=== PATIENT | female | born 1970 | race Caucasian/White ===

== ENCOUNTER 2018-06-05 17:36 | Emergency (ER) | payer BC ==
[~2018-06-05] VITALS: Ht 160 cm; Wt 69.4 kg
[~2018-06-05 17:36] MED LIST: ACETAMINOPHEN-1 EAC1 PO; AMOXICILLIN 50500 MG PO; AMOXICILLIN500 M1 PO; AMOXICILLIN875 MG PO; ATIVAN1 MG PO; AVELOX 400 MG400 M1 PO; AVELOX 400 MG400 MG; AZITHROMYCIN 2250 MG PO; BENICAR20 MG PO; BENTYL 20 MG TA20 M1 PO; BIAXIN 500 MG500 M2 PO; CARAFATE 1 GM TA1 G1 PO; CARISOPRODOL 3350 MG PO; CIPRO250 M1; CIPRO500 MG PO; CIPROFLOXACIN500 M1; CIPROFLOXACIN500 M1 PO; CLEOCIN HCL150 MG PO; CLEOCIN HCL300 MG PO; COLACE 100 MG100 MG; COLACE100 MG PO; COZAAR 25 MG TA25 MG PO; FIORICET 50-321 EACH PO; FLEXERIL PO; FLUZONE 2045 MCG/011; GAVISCON500 MG PO; HYDROCODONE-AP1 EAC6 PO; HYDROCODONE-APA1 TA1 PO; IBUPROFEN 800800 MG PO; KEFLEX500 MG PO; LOMOTIL TABLET1 EACH PO; MEDROL DOSPAK21 TA1; MOM PO; MUCINEX TA600 MG/TA2 PO; NAPROSYN500 MG PO; NIFEDIPINE ER30 MG; NORCO 5-325 TA1 EACH PO; NORCO 7.5-3251 EACH PO; OMEPRAZOLE40 MG PO; ONDANSETRON HCL4 M3 PO; PENICILLIN VK500 M1 PO; PERCOCET 5-3251 EACH PO; PHENAZOPYRIDIN200 M2 PO; PHENERGAN 25 MG25 M1 PO; PNEUMOVAX25 MCG/0.5; PREDNISONE 20 M20 M1 PO; PROTONIX 20 MG20 M1 PO; PROTONIX40 M1; PROTONIX40 M2 PO; PROTONIX40 MG PO; SEE COMMENTS; TOPROL XL25 MG PO; TOPROL XL50 MG PO; TORADOL 10 MG T10 MG PO; TRAMADOL 50 MG50 MG PO; TRIAMCINOLONE 080 G3 TP; ULTRAM 50MG TAB50 MG PO; VICODIN 5-5001 EACH PO; ZANTAC; ZANTAC 150MG T150 M1 PO; ZANTAC 150MG T150 MG PO; ZOFRAN ODT4 MG PO; ZOFRAN ODT4 MG SUBLING; ZOFRAN4 MG PO; ZPAK PO; [UNRECOGNIZED DRUG - CODE] PO
[2018-06-05] MEDS ORDERED: LOPRESSOR50 PO (17:49)
[2018-06-05] MEDS ORDERED: BENICAR40 MG PO (17:49)
[2018-06-05 18:36] LABS: ABSOLUTE LYMPHOCYTES 1.1 thou/uL (0.8-5.3); ABSOLUTE MONOCYTES 0.7 thou/uL (0.0-1.2); ABSOLUTE NEUTROPHILS 6.4 thou/uL (1.6-8.1); BASOPHILS 0.2 %; EOSINOPHILS 0.6 %; HEMOGLOBIN 12.6 gm/dL (12.0-15.0); LYMPHOCYTES 12.9 %; MCH 25.8 pg (26.0-34.0); MCHC 32.3 g/dL (28.0-37.0); MCV 79.9 fL (80.0-100.0); MONOCYTES 8.5 %; NUCLEATED RBCS 0 /100WBC; PLATELET COUNT* 285 thou/uL (150-400); POLYS 77.8 %; RBC 4.88 mil/uL (4.20-5.00); RDW-CV 15.3 % (10.5-14.5); WBC 8.2 thou/uL (4.0-11.0)
[2018-06-05 18:46] LABS: ANION GAP 19 mmol/L (7-16); BUN 7 mg/dL (7-18); CALCIUM 10.2 mg/dL (8.5-10.1); CHLORIDE 102 mmol/L (98-107); CO2 18 mmol/L (21-32); CREATININE 0.6 mg/dL (0.6-1.3); GLUCOSE 77 mg/dL (70-99); POTASSIUM 3.1 mmol/L (3.5-5.1); SODIUM 139 mmol/L (136-145)
[2018-06-05 18:53] LABS: ALBUMIN 3.1 g/dL (3.4-5.0); ALKALINE PHOSPHATASE 137 U/L (46-116); SGOT 31 U/L (15-37); SGPT 38 U/L (30-65); TOTAL BILIRUBIN 0.6 mg/dL (<0.1-1.0); TOTAL PROTEIN 7.4 g/dL (6.4-8.2); TROPONIN-I LEVEL <0.06 ng/mL (<0.06)
[2018-06-05 20:07] LABS: URINE BLOOD NEGATIVE (Negative); URINE CLARITY CLEAR; URINE COLOR YELLOW; URINE GLUCOSE-RANDOM NEGATIVE (Negative); URINE LEUKOCYTES-REFLEX NEGATIVE (Negative); URINE NITRITE-REFLEX NEGATIVE (Negative); URINE PROTEIN NEGATIVE (Negative); URINE SPECIFIC GRAVITY >= 1.030 (1.005-1.030); URINE UROBILINOGEN 0.2 E.U./dl (0.2-1.0)
[2018-06-05] MEDS ORDERED: ZOFRAN ODT4 MG DISSOLVE (20:08)
[2018-06-05 20:18] LABS: ACETEST (KETONE CONFIRMATORY) Moderate (Negative); ICTOTEST (BILI CONFIRMATORY) Negative (Negative); URINE BILIRUBIN 1+ (Negative); URINE KETONES 3+ (Negative)
[2018-06-05 20:24] VITALS: BP 164/82
--- NOTE | 2018-06-06 15:18 | EKG ---
[place] [address] ELECTROCARDIOGRAM REPORT Name: JAVIER DAN [id number] Admission: 06/05/18 Attend Phys: Discharge: 06/05/18 Date of : 74 Report #: [id number] THIS REPORT FOR: //name// [facility] ED Test Date: 2018-06-05 Test Time: 17:39:55 Pat Name: JAVIER DAN Department: Room: Gender: F Casting Machine Adjuster: ANUJA SCHMITZ : 1970 Requested By: Cherelle Moncada Order Number: [id number] Cuca MD: Oswaldo [place] Measurements Intervals [place] Rate: 131 P: 75 [place]: 142 QRS: 6 QRSD: 80 T: -28 QT: 315 QTc: 465 Interpretive Statements Sinus tachycardia Left atrial enlargement Borderline T abnormalities, inferior leads Compared to ECG 06/21/2017 22:11:25 T-wave abnormality now present Sinus rate has increased Electronically Signed On 06-06-2018 15:17:47 CDT by Oswaldo [place] [email or web address] <ELECTRONICALLY SIGNED> By: Oswaldo [place] MD, [facility] 06/06/18 1517 1739 173 Oswaldo [place] MD, [facility] /EPI
== END 2018-06-05 20:34 | disposition home or self-care (01) ==
LOC: M.ERS 17:36
PROVIDERS: Personal Emergency Response Attendant
DX: I47.1 Supraventricular tachycardia (principal); R11.2 Nausea with vomiting, unspecified; I10 Essential (primary) hypertension; Z87.442 Personal history of urinary calculi; Z90.49 Acquired absence of other specified parts of digestive tract; Z90.89 Acquired absence of other organs; Z88.6 Allergy status to analgesic agent; Z91.018 Allergy to other foods; Z88.5 Allergy status to narcotic agent; Z91.041 Radiographic dye allergy status

== ENCOUNTER 2018-09-20 11:42 | Emergency (ER) | payer BC ==
[~2018-09-20] VITALS: Ht 162.6 cm; Wt 74.8 kg
--- NOTE | ~2018-09-20 | EKG ---
[place] [address] ELECTROCARDIOGRAM REPORT Name: NIJAVIER R Room: [facility]#: [id number] Admission: 09/20/18 Attend Phys: Discharge: 09/20/18 Date of : 74 Report #: [id number] THIS REPORT FOR: //name// [facility] ED Test Date: 2018-09-20 Test Time: 13:55:09 Pat Name: JAVIER DAN Department: Room: Gender: F Cut Out And Marking Machine Operator: Dianne CLARK : 1970 Requested By: Guille Jim Order Number: [id number] MD: Measurements Intervals [place] Rate: 46 P: 34 [place]: 167 QRS: 22 QRSD: 102 T: 35 QT: 428 QTc: 375 Interpretive Statements Sinus bradycardia Compared to ECG 09/20/2018 11:48:25 Sinus rhythm no longer present [email or web address] By: 1355 1355 Devorah Fairchild MD /EPI
[~2018-09-20 11:42] MED LIST changes: +BENICAR40 MG PO; +LOPRESSOR50 PO; +ZOFRAN ODT4 MG DISSOLVE
[2018-09-20] MEDS ORDERED: METHIMAZOLE5 MG PO (11:52)
[2018-09-20] MEDS ORDERED: PROTONIX40 M1 PO (11:52)
[2018-09-20 12:09] LABS: ABSOLUTE BASOPHILS 0.1 thou/uL (0.0-0.2); ABSOLUTE EOSINOPHILS 0.1 thou/uL (0.0-0.7); ABSOLUTE LYMPHOCYTES 2.4 thou/uL (0.8-5.3); ABSOLUTE MONOCYTES 0.4 thou/uL (0.0-1.2); ABSOLUTE NEUTROPHILS 4.4 thou/uL (1.6-8.1); BASOPHILS 0.7 %; EOSINOPHILS 1.7 %; HEMATOCRIT 43.6 % (37.0-47.0); HEMOGLOBIN 14.1 gm/dL (12.0-15.0); LYMPHOCYTES 32.9 %; MCH 29.4 pg (26.0-34.0); MCHC 32.4 g/dL (28.0-37.0); MCV 90.8 fL (80.0-100.0); MONOCYTES 4.9 %; MPV 7.1 fl. (7.2-11.1); NUCLEATED RBCS 0 /100WBC; PLATELET COUNT* 357 thou/uL (150-400); POLYS 59.8 %; WBC 7.4 thou/uL (4.0-11.0)
[2018-09-20 12:17] LABS: ANION GAP 10 mmol/L (7-16); BUN 10 mg/dL (7-18); CALCIUM 9.4 mg/dL (8.5-10.1); CHLORIDE 104 mmol/L (98-107); CO2 25 mmol/L (21-32); GLUCOSE 96 mg/dL (70-99); POTASSIUM 3.3 mmol/L (3.5-5.1); SODIUM 139 mmol/L (136-145)
[2018-09-20 12:27] LABS: ALKALINE PHOSPHATASE 154 U/L (46-116); LIPASE 123 U/L (73-393); MAGNESIUM 1.8 mg/dL (1.8-2.4); NT-PRO BRAIN NAT PEPTIDE 148 pg/mL (<300); SGOT 15 U/L (15-37); SGPT 14 U/L (30-65); TOTAL BILIRUBIN 0.6 mg/dL (<0.1-1.0); TOTAL PROTEIN 7.8 g/dL (6.4-8.2); TROPONIN-I LEVEL <0.06 ng/mL (<0.06)
[2018-09-20 15:55] VITALS: BP 169/85
--- NOTE | 2018-09-20 17:09 | EKG ---
[place] [address] ELECTROCARDIOGRAM REPORT Name: NIJAVIER R Room: [facility]#: [id number] Admission: 09/20/18 Attend Phys: Discharge: 09/20/18 Date of : 74 Report #: [id number] THIS REPORT FOR: //name// [facility] ED Test Date: 2018-09-20 Test Time: 11:48:25 Pat Name: JAVIER DAN Department: Room: Gender: F Information Management Manager: Dianne CLARK : 1970 Requested By: Guille Jim Order Number: [id number] MD: Christiano Bentley Measurements Intervals [place] Rate: 62 P: 53 NE: 160 QRS: 30 QRSD: 105 T: 56 QT: 421 QTc: 428 Interpretive Statements Sinus rhythm Probable left atrial enlargement Baseline wander in lead(s) V2 Compared to ECG 06/05/2018 17:39:55 Sinus tachycardia no longer present T-wave abnormality no longer present Electronically Signed On 09-20-2018 17:09:25 LUBRICATION SUPERVISOR by Christiano Bentley [email or web address] <ELECTRONICALLY SIGNED> By: Christiano Bentley MD, [facility] 09/20/18 1709 1148 1148 Christiano Bentley MD, [facility] /EPI
--- NOTE | 2018-09-21 09:08 | CON ---
[address] [address] CONSULTATION Name: JAVIER DAN [facility] [id number] Admission: 09/20/18 Attend Phys: Discharge: 09/20/18 Date of : 74 Report #: [id number] THIS REPORT FOR: //name// CC: Artemio Jim DATE OF SERVICE: 09/20/2018 CARDIOLOGY CONSULTATION: HISTORY OF PRESENT ILLNESS: The patient is a 47-year-old white female who I was asked to see in the Emergency Room after she complained of chest pain. The patient has no previous history of heart disease. She apparently saw a seed collector at [place] a couple of years ago when she was having chest pain. She apparently had a stress test at that time and told there was no evidence of heart disease. She does have a history of obesity. She previously weighed 240 pounds. She actually had a gastric sleeve placed in April of this year at [place]. Recently, she was diagnosed with Graves' disease. She is known to be tachycardic, was placed on metoprolol. Recently, the dose of metoprolol was decreased in half because the heart rate was lower. She has been treated with Tapazole. She is not very active at this time. She notes yesterday, she had heaviness in her chest with some belching. She took some Protonix, did not seem to help. The heaviness persisted. She finally came to the Emergency Room and I was asked to see her. She denied the pain radiating to her arms. She did note some discomfort in her left flank. She denied any associated shortness of breath, diaphoresis, nausea. She denies any exertional dyspnea. She has had no palpitation, syncope, edema. Denied any bleeding. She has had no fever or cough. She has had no vomiting. PAST MEDICAL HISTORY: She has had previous cholecystectomy, tonsillectomy, hypertension, recently diagnosed Graves' disease. MEDICATIONS: Include Benicar, metoprolol, Tapazole. ALLERGIES: SHE HAS AN ALLERGY TO MORPHINE. FAMILY HISTORY: Her mother had stent. SOCIAL HISTORY: She is . She and her live in [place]. She is self employed. No smoking or alcohol abuse. REVIEW OF SYSTEMS: She has had no history of stroke, asthma, peptic ulcer disease. She has had a kidney stone. 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 No psychiatric illness[place] [address] CONSULTATION Name: JAVIER DAN Room: [facility]#: [id number] Admission: 09/20/18 Attend Phys: Discharge: 09/20/18 Date of : 74 Report #: [id number] PHYSICAL EXAMINATION: GENERAL: Revealed a young white female sitting on a stretcher. She appeared in no distress. VITAL SIGNS: Her blood pressure initially was 200/100, pulse is 60. She is afebrile. HEENT: She was anicteric, conjunctiva pink. Mucous members moist. NECK: Neck veins do not appear distended. No carotid bruits. Neck supple. CHEST: Clear to auscultation. CARDIOVASCULAR: Regular, bradycardia. ABDOMEN: Soft. EXTREMITIES: No edema. SKIN: Warm and dry. NEUROLOGIC: Nonfocal. LYMPHATIC: No adenopathy. MUSCULOSKELETAL: No joint effusion. IMAGING: Her ECG showed sinus bradycardia at 46 beats per minute. There was no significant ST or T-wave change. LABORATORY DATA: Sodium 139, potassium 3.3, glucose 96. Liver function studies showed SGPT 14, alkaline phosphatase is 154, bilirubin 0.6. Her troponin was 0.06. White blood cell count 7.4, hemoglobin 14.1. In the Emergency Room today, her TSH was 96, T4 0.28. She had a portable chest x-ray in the Emergency Room today that showed no acute abnormality. IMPRESSION AND RECOMMENDATIONS: 1. Chest pain. Atypical for angina. Recommend no further cardiac workup. 2. Bradycardia. I would decrease the dose of her beta paulino. 3. Hypothyroid. The patient is followed by Endocrinology. 4. Hypertension. If blood pressure remains elevated, I would consider switching from a beta paulino to another agent. 5. History of obesity with previous gastric sleeve. 6. History of IgA nephropathy. 7. Previous kidney stone. <ELECTRONICALLY SIGNED> By: Sunny Hernández MD, FACC 09/21/1808 1536 2357Christiano Bentley MD, FACC /nt
--- NOTE | 2018-09-22 10:08 | EKG ---
[place] [address] ELECTROCARDIOGRAM REPORT Name: JAVIER DAN Room: [facility]#: [id number] Admission: 09/20/18 Attend Phys: Discharge: 09/20/18 Date of : 74 Report #: [id number] THIS REPORT FOR: //name// [facility] ED Test Date: 2018-09-20 Test Time: 13:55:09 Pat Name: JAVIER DAN Department: Room: Gender: F Science Tutor: Dianne CLARK : 1970 Requested By: Guille Jim Order Number: [id number] MD: Sunny Hernández Measurements Intervals [place] Rate: 46 P: 34 [place]: 167 QRS: 22 QRSD: 102 T: 35 QT: 428 QTc: 375 Interpretive Statements Sinus bradycardia Compared to ECG 09/20/2018 11:48:25 Sinus rhythm no longer present Electronically Signed On 09-22-2018 10:08:26 HALL SUPERVISOR by Sunny Hernández [email or web address] <ELECTRONICALLY SIGNED> By: Sunny Hernández MD, [facility] 09/22/18 1008 1355 1355 Sunny Hernández MD, [facility] /EPI
== END 2018-09-20 15:55 | disposition home or self-care (01) ==
LOC: M.ERS 11:42
PROVIDERS: Emergency Medicine Emergency Medical Services
DX: E03.9 Hypothyroidism, unspecified (principal); I10 Essential (primary) hypertension; Z88.6 Allergy status to analgesic agent; Z91.041 Radiographic dye allergy status; Z91.018 Allergy to other foods; Z90.49 Acquired absence of other specified parts of digestive tract; Z87.442 Personal history of urinary calculi

== ENCOUNTER 2019-05-25 18:02 | Emergency (ER) | payer BC ==
[~2019-05-25] VITALS: Ht 162.6 cm; Wt 77.1 kg
[~2019-05-25 18:02] MED LIST changes: +METHIMAZOLE5 MG PO; +PROTONIX40 M1 PO
[2019-05-25] MEDS ORDERED: COZAAR 25 MG TA25 M1 PO (18:19)
[2019-05-25 19:06] LABS: ABSOLUTE BASOPHILS 0.1 thou/uL (0.0-0.2); ABSOLUTE EOSINOPHILS 0.1 thou/uL (0.0-0.7); ABSOLUTE LYMPHOCYTES 2.2 thou/uL (0.8-5.3); ABSOLUTE MONOCYTES 0.4 thou/uL (0.0-1.2); ABSOLUTE NEUTROPHILS 4.8 thou/uL (1.6-8.1); BASOPHILS 0.7 %; EOSINOPHILS 1.1 %; HEMATOCRIT 44.6 % (37.0-47.0); HEMOGLOBIN 14.6 gm/dL (12.0-15.0); LYMPHOCYTES 29.6 %; MCH 27.8 pg (26.0-34.0); MCHC 32.7 g/dL (28.0-37.0); MCV 85.3 fL (80.0-100.0); MONOCYTES 5.7 %; MPV 6.9 fl. (7.2-11.1); NUCLEATED RBCS 0 /100WBC; PLATELET COUNT* 357 thou/uL (150-400); POLYS 62.9 %; RBC 5.23 mil/uL (4.20-5.00); RDW-CV 14.3 % (10.5-14.5); WBC 7.6 thou/uL (4.0-11.0)
[2019-05-25 19:12] LABS: CALCIUM 9.3 mg/dL (8.5-10.1); CREATININE 1.1 mg/dL (0.6-1.3); POTASSIUM 4.1 mmol/L (3.5-5.1)
[2019-05-25] MEDS ORDERED: NORCO 5-325 TA1 EAC1 PO (20:44)
[2019-05-25 21:04] VITALS: BP 135/87
== END 2019-05-25 21:06 | disposition home or self-care (01) ==
LOC: M.ERS 18:02
PROVIDERS: Emergency Medicine Emergency Medical Services
DX: J32.9 Chronic sinusitis, unspecified (principal); I10 Essential (primary) hypertension; Z90.49 Acquired absence of other specified parts of digestive tract; Z88.5 Allergy status to narcotic agent; Z91.041 Radiographic dye allergy status; Z88.8 Allergy status to other drugs, medicaments and biological substances

== ENCOUNTER 2020-01-23 18:09 | Emergency (ER) | payer BC ==
[~2020-01-23] VITALS: Ht 162.6 cm; Wt 81.7 kg
[~2020-01-23 18:09] MED LIST changes: +COZAAR 25 MG TA25 M1 PO; +NORCO 5-325 TA1 EAC1 PO
[2020-01-23] MEDS ORDERED: PROTONIX40 M2 PO (18:18)
[2020-01-23 18:44] LABS: ABSOLUTE EOSINOPHILS 0.1 thou/uL (0.0-0.7); ABSOLUTE LYMPHOCYTES 1.7 thou/uL (0.8-5.3); ABSOLUTE MONOCYTES 0.4 thou/uL (0.0-1.2); ABSOLUTE NEUTROPHILS 6.9 thou/uL (1.6-8.1); BASOPHILS 0.5 %; EOSINOPHILS 0.9 %; HEMATOCRIT 41.5 % (37.0-47.0); HEMOGLOBIN 13.8 gm/dL (12.0-15.0); LYMPHOCYTES 18.3 %; MCH 28.5 pg (26.0-34.0); MCHC 33.3 g/dL (28.0-37.0); MCV 85.5 fL (80.0-100.0); MONOCYTES 4.3 %; MPV 7.4 fl. (7.2-11.1); NUCLEATED RBCS 0 /100WBC; PLATELET COUNT* 394 thou/uL (150-400); RBC 4.86 mil/uL (4.20-5.00); RDW-CV 14.5 % (10.5-14.5)
[2020-01-23 19:00] LABS: CALCIUM 8.9 mg/dL (8.5-10.1); CREATININE 0.9 mg/dL (0.6-1.3); POTASSIUM 4.3 mmol/L (3.5-5.1)
[2020-01-23 19:02] LABS: APTT 28.7 Seconds (25.0-31.3); PROTIME 10.3 Seconds (9.20-11.50)
[2020-01-23 19:15] LABS: ALBUMIN 3.9 g/dL (3.4-5.0); CK-MB MASS 0.7 ng/mL (<0.5-3.6); MAGNESIUM 1.9 mg/dL (1.8-2.4); TOTAL BILIRUBIN 0.3 mg/dL (<0.1-1.0); TOTAL PROTEIN 8.2 g/dL (6.4-8.2)
[2020-01-23 19:53] LABS: INFLUENZA A ANTIGEN Negative (Negative); INFLUENZA B ANTIGEN Negative (Negative)
[2020-01-23] MEDS ORDERED: MEDROLDOSEPACK PO (19:58)
[2020-01-23] MEDS ORDERED: ZOFRAN ODT4 MG PO (19:58)
[2020-01-23 20:33] VITALS: BP 175/94
--- NOTE | 2020-01-26 09:09 | EKG ---
[place] [address] ELECTROCARDIOGRAM REPORT Name: JAVIER DAN Room: [facility]#: [id number] Admission: 01/23/20 Attend Phys: Discharge: 01/23/20 Date of : 74 Date of Service: 01/23/201813 Report #: [id number] THIS REPORT FOR: //name// [facility] ED Test Date: 2020-01-23 Test Time: 18:14:19 Pat Name: JAVIER DAN Department: Room: Gender: F Shoe Associate[place] [facility] [place] 1970 Requested By: Chele Nathan Order Number: [id number] MD: Christiano Bentley Measurements Intervals [place] Rate: 91 P: 55 [place]: 159 QRS: 15 QRSD: 97 T: 58 QT: 370 QTc: 456 Interpretive Statements Sinus rhythm Probable left atrial enlargement Compared to ECG 09/20/2018 13:55:09 Sinus bradycardia no longer present Electronically Signed On 01-26-2020 9:07:54 CDT by Christiano Bentley [email or web address] <ELECTRONICALLY SIGNED> By: Christiano Bentley MD, [facility] 01/26/20906 13 13 Christiano Bentley MD, [facility] /EPI
== END 2020-01-23 20:34 | disposition home or self-care (01) ==
LOC: M.ERS 18:09
PROVIDERS: Family Medicine; Personal Emergency Response Attendant
DX: J40 Bronchitis, not specified as acute or chronic (principal); R07.89 Other chest pain; R42 Dizziness and giddiness; I10 Essential (primary) hypertension; Z90.49 Acquired absence of other specified parts of digestive tract; Z87.442 Personal history of urinary calculi; Z90.89 Acquired absence of other organs; Z88.5 Allergy status to narcotic agent; Z88.8 Allergy status to other drugs, medicaments and biological substances

== ENCOUNTER 2020-01-27 04:11 | Emergency (ER) | payer BC ==
[~2020-01-27] VITALS: Ht 162.6 cm; Wt 83.9 kg
[~2020-01-27 04:11] MED LIST changes: +MEDROLDOSEPACK PO
[2020-01-27 04:52] LABS: ABSOLUTE LYMPHOCYTES 1.7 thou/uL (0.8-5.3); ABSOLUTE MONOCYTES 0.5 thou/uL (0.0-1.2); ABSOLUTE NEUTROPHILS 12.3 thou/uL (1.6-8.1); BASOPHILS 0.3 %; EOSINOPHILS 0.3 %; HEMATOCRIT 42.6 % (37.0-47.0); HEMOGLOBIN 14.5 gm/dL (12.0-15.0); LYMPHOCYTES 11.4 %; MCH 28.9 pg (26.0-34.0); MCHC 33.9 g/dL (28.0-37.0); MCV 85.2 fL (80.0-100.0); MONOCYTES 3.1 %; NUCLEATED RBCS 0 /100WBC; PLATELET COUNT* 443 thou/uL (150-400); POLYS 84.9 %; RDW-CV 14.1 % (10.5-14.5); WBC 14.5 thou/uL (4.0-11.0)
[2020-01-27 05:01] LABS: PROTIME 10.3 Seconds (9.20-11.50)
[2020-01-27 05:03] LABS: URINE BILIRUBIN NEGATIVE (Negative); URINE BLOOD TRACE (Negative); URINE CLARITY CLEAR; URINE COLOR YELLOW; URINE GLUCOSE-RANDOM NEGATIVE (Negative); URINE KETONES NEGATIVE (Negative); URINE LEUKOCYTES-REFLEX NEGATIVE (Negative); URINE NITRITE-REFLEX NEGATIVE (Negative); URINE PROTEIN 3+ (Negative); URINE SPECIFIC GRAVITY >= 1.030 (1.005-1.030); URINE UROBILINOGEN 0.2 E.U./dl (0.2-1.0)
[2020-01-27 05:14] LABS: CALCIUM 9.4 mg/dL (8.5-10.1)
[2020-01-27 05:17] LABS: SQUAMOUS 4-10 Moderate /LPF (0-3)
[2020-01-27 05:18] LABS: BACTERIA-REFLEX 1-9 Few /HPF (None Seen); CASTS None Seen /LPF (None Seen); CRYSTALS None Seen /LPF (None Seen); MUCUS 0-3 Light strn/LPF (None Seen); URINE RBC 0-2 Rare /HPF (0-2); URINE WBC-REFLEX 0-5 Rare /HPF (0-5)
[2020-01-27 05:30] LABS: ALBUMIN 4.1 g/dL (3.4-5.0); TOTAL BILIRUBIN 0.3 mg/dL (<0.1-1.0)
[2020-01-27] MEDS ORDERED: FLEXERIL PO (08:46)
[2020-01-27 09:48] VITALS: BP 153/86
--- NOTE | 2020-01-27 12:46 | EKG ---
[place] [address] ELECTROCARDIOGRAM REPORT Name: JAVIER DAN Kwame Room: [facility]#: [id number] Admission: 01/27/20 Attend Phys: Discharge: 01/27/20 Date of : 74 Date of Service: 01/27/20 0416 Report #: [id number] THIS REPORT FOR: //name// [facility] ED Test Date: 2020-01-27 Test Time: 04:16:12 Pat Name: JAVIER DAN Department: Room: Gender: F Test Kitchen Home Economist: JAIME : 1970 Requested By: Marge Melendez Order Number: [id number] MD: Christiano Bentley Measurements Intervals [place] Rate: 76 P: 48 ID: 148 QRS: 3 QRSD: 100 T: 52 QT: 394 QTc: 444 Interpretive Statements Sinus rhythm Probable left atrial enlargement Compared to ECG 01/23/2020 18:14:19 No significant changes Electronically Signed On 01-27-2020 12:44:58 CDT by Christiano Bentley [email or web address] <ELECTRONICALLY SIGNED> By: Christiano Bentley MD, [facility] 01/27/20 1244 0416 0416 Christiano Bentley MD, [facility] /EPI
== END 2020-01-27 09:49 | disposition home or self-care (01) ==
LOC: M.ERS 04:11
PROVIDERS: Emergency Medicine
DX: R07.89 Other chest pain (principal); I10 Essential (primary) hypertension; Z90.49 Acquired absence of other specified parts of digestive tract; Z87.442 Personal history of urinary calculi; Z90.89 Acquired absence of other organs; Z88.6 Allergy status to analgesic agent; Z91.041 Radiographic dye allergy status; Z88.5 Allergy status to narcotic agent; Z88.8 Allergy status to other drugs, medicaments and biological substances; Z91.018 Allergy to other foods

== ENCOUNTER 2020-07-08 13:53 | Emergency (ER) | payer BC ==
[~2020-07-08] VITALS: Ht 162.6 cm; Wt 86.2 kg
[2020-07-08] MEDS ORDERED: LOSARTAN-HCTZ1 EAC3 PO (14:03)
[2020-07-08 14:34] LABS: ABSOLUTE EOSINOPHILS 0.1 thou/uL (0.0-0.7); ABSOLUTE MONOCYTES 0.3 thou/uL (0.0-1.2); ABSOLUTE NEUTROPHILS 5.4 thou/uL (1.6-8.1); BASOPHILS 0.5 %; EOSINOPHILS 1.6 %; HEMATOCRIT 42.4 % (37.0-47.0); HEMOGLOBIN 14.2 gm/dL (12.0-15.0); LYMPHOCYTES 25.5 %; MCH 28.1 pg (26.0-34.0); MCHC 33.4 g/dL (28.0-37.0); MCV 84.2 fL (80.0-100.0); MONOCYTES 4.4 %; MPV 7.2 fl. (7.2-11.1); NUCLEATED RBCS 0 /100WBC; PLATELET COUNT* 404 thou/uL (150-400); RBC 5.04 mil/uL (4.20-5.00); WBC 7.9 thou/uL (4.0-11.0)
[2020-07-08 14:44] LABS: CALCIUM 8.8 mg/dL (8.5-10.1); CREATININE 1.1 mg/dL (0.6-1.3); POTASSIUM 3.6 mmol/L (3.5-5.1)
[2020-07-08 14:51] LABS: APTT 28.5 Seconds (25.0-31.3); PROTIME 10.5 Seconds (9.20-11.50)
[2020-07-08 14:58] LABS: CK-MB MASS 1.2 ng/mL (<0.5-3.6); MAGNESIUM 1.9 mg/dL (1.8-2.4); TOTAL BILIRUBIN 0.5 mg/dL (<0.1-1.0); TOTAL PROTEIN 8.2 g/dL (6.4-8.2)
[2020-07-08] MEDS ORDERED: NORCO 5-325 TA1 EAC2 PO (15:09)
[2020-07-08] MEDS ORDERED: ZOFRAN ODT4 MG SUBLING (15:09)
[2020-07-08 15:59] VITALS: BP 163/90
--- NOTE | 2020-07-09 10:28 | EKG ---
[place] [address] ELECTROCARDIOGRAM REPORT Name: JAVIER DAN Room: [facility]#: [id number] Admission: 07/08/20 Attend Phys: Discharge: 07/08/20 Date of : 74 Date of Service: 07/08/20 1358 Report #: [id number] THIS REPORT FOR: //name// [facility] ED Test Date: 2020-07-08 Test Time: 13:58:32 Pat Name: JAVIER DAN Department: Room: Gender: Supervisor Carpenters: MICAELA : 1970 Requested By: Chele Nathan Order Number: [id number] MD: Oswaldo [place] Measurements Intervals [place] Rate: 76 P: 51 [place]: 160 QRS: 8 QRSD: 99 T: 54 QT: 406 QTc: 457 Interpretive Statements Sinus rhythm Probable left atrial enlargement Compared to ECG 01/27/2020 04:16:12 No significant changes Electronically Signed On 07-09-2020 10:28:08 CDT by Oswaldo [place] [email or web address] <ELECTRONICALLY SIGNED> By: Oswaldo [place] MD, [facility] 07/09/20 1028 1358 1358 Oswaldo [place] MD, [facility] /EPI
== END 2020-07-08 16:01 | disposition home or self-care (01) ==
LOC: M.ERS 13:53
PROVIDERS: Family Medicine
DX: G43.909 Migraine, unspecified, not intractable, without status migrainosus (principal); I10 Essential (primary) hypertension; R42 Dizziness and giddiness; Z88.6 Allergy status to analgesic agent; Z88.5 Allergy status to narcotic agent; Z88.8 Allergy status to other drugs, medicaments and biological substances; Z79.899 Other long term (current) drug therapy; Z90.49 Acquired absence of other specified parts of digestive tract; Z87.442 Personal history of urinary calculi; Z98.84 Bariatric surgery status

== ENCOUNTER 2020-07-25 20:13 | Emergency (ER) | payer BC ==
[~2020-07-25] VITALS: Ht 160 cm; Wt 86.2 kg
[~2020-07-25 20:13] MED LIST changes: +LOSARTAN-HCTZ1 EAC3 PO; +NORCO 5-325 TA1 EAC2 PO
[2020-07-25 21:05] LABS: ABSOLUTE EOSINOPHILS 0.1 thou/uL (0.0-0.7); ABSOLUTE LYMPHOCYTES 1.8 thou/uL (0.8-5.3); ABSOLUTE MONOCYTES 0.5 thou/uL (0.0-1.2); ABSOLUTE NEUTROPHILS 6.7 thou/uL (1.6-8.1); BASOPHILS 0.4 %; EOSINOPHILS 1.1 %; HEMATOCRIT 42.8 % (37.0-47.0); HEMOGLOBIN 14.6 gm/dL (12.0-15.0); LYMPHOCYTES 20.1 %; MCH 28.4 pg (26.0-34.0); MCHC 34.1 g/dL (28.0-37.0); MCV 83.4 fL (80.0-100.0); MONOCYTES 5.1 %; MPV 6.8 fl. (7.2-11.1); NUCLEATED RBCS 0 /100WBC; PLATELET COUNT* 395 thou/uL (150-400); POLYS 73.3 %; RBC 5.13 mil/uL (4.20-5.00); RDW-CV 14.7 % (10.5-14.5); WBC 9.1 thou/uL (4.0-11.0)
[2020-07-25 21:13] LABS: CALCIUM 9.4 mg/dL (8.5-10.1); CREATININE 1.1 mg/dL (0.6-1.3); MAGNESIUM 1.8 mg/dL (1.8-2.4); POTASSIUM 3.8 mmol/L (3.5-5.1)
[2020-07-25 22:08] LABS: URINE BILIRUBIN NEGATIVE (Negative); URINE BLOOD TRACE (Negative); URINE CLARITY CLEAR; URINE COLOR YELLOW; URINE GLUCOSE-RANDOM NEGATIVE (Negative); URINE KETONES NEGATIVE (Negative); URINE LEUKOCYTES-REFLEX NEGATIVE (Negative); URINE NITRITE-REFLEX NEGATIVE (Negative); URINE PROTEIN NEGATIVE (Negative); URINE UROBILINOGEN 0.2 E.U./dl (0.2-1.0)
[2020-07-26] MEDS ORDERED: CATAPRES0.1 MG PO (00:21)
[2020-07-26 01:45] VITALS: BP 141/71
--- NOTE | 2020-07-26 17:42 | EKG ---
[place] [address] ELECTROCARDIOGRAM REPORT Name: SHOAIBRobJAVIER R Room: [facility]#: [id number] Admission: 07/25/20 Attend Phys: Discharge: 07/26/20 Date of : 74 Date of Service: 07/25/202036 Report #: [id number] THIS REPORT FOR: //name// [facility] ED Test Date: 2020-07-25 Test Time: 20:37:33 Pat Name: JAVIER DAN Department: Room: Gender: Transplant Registered Nurse: [place] : 1970 Requested By: Marge Melendez Order Number: [id number] MD: Sunny Hernández Measurements Intervals [place] Rate: 81 P: 39 NM: 156 QRS: 3 QRSD: 98 T: 30 QT: 384 QTc: 446 Interpretive Statements Sinus rhythm Probable left atrial enlargement Left ventricular hypertrophy Baseline wander in lead(s) III Compared to ECG 07/08/2020 13:58:32 Left ventricular hypertrophy now present Electronically Signed On 07-26-2020 17:42:36 CDT by Sunny Hernández [email or web address] <ELECTRONICALLY SIGNED> By: Sunny Hernández MD, FACC 07/26/20 1742 36 36 Sunny Hernández MD, FAC /EPI
== END 2020-07-26 01:45 | disposition home or self-care (01) ==
LOC: M.ERS 20:13
PROVIDERS: Emergency Medicine
DX: I10 Essential (primary) hypertension (principal); Z88.6 Allergy status to analgesic agent; Z88.5 Allergy status to narcotic agent; Z91.041 Radiographic dye allergy status; Z91.018 Allergy to other foods; Z90.49 Acquired absence of other specified parts of digestive tract; Z87.442 Personal history of urinary calculi; Z90.89 Acquired absence of other organs

== ENCOUNTER 2020-09-20 13:48 | Emergency (ER) | payer BC ==
[~2020-09-20] VITALS: Ht 162.6 cm; Wt 86.2 kg
[~2020-09-20 13:48] MED LIST changes: +CATAPRES0.1 MG PO
[2020-09-20 15:19] LABS: URINE BILIRUBIN NEGATIVE (Negative); URINE BLOOD NEGATIVE (Negative); URINE CLARITY CLEAR; URINE COLOR YELLOW; URINE GLUCOSE-RANDOM NEGATIVE (Negative); URINE KETONES NEGATIVE (Negative); URINE LEUKOCYTES-REFLEX NEGATIVE (Negative); URINE NITRITE-REFLEX NEGATIVE (Negative); URINE PROTEIN NEGATIVE (Negative); URINE UROBILINOGEN 0.2 E.U./dl (0.2-1.0)
[2020-09-20 17:25] LABS: ABSOLUTE LYMPHOCYTES 1.4 thou/uL (0.8-5.3); ABSOLUTE MONOCYTES 0.3 thou/uL (0.0-1.2); ABSOLUTE NEUTROPHILS 6.6 thou/uL (1.6-8.1); BASOPHILS 0.4 %; EOSINOPHILS 0.4 %; HEMATOCRIT 42.2 % (37.0-47.0); HEMOGLOBIN 13.9 gm/dL (12.0-15.0); LYMPHOCYTES 17.2 %; MCH 28.1 pg (26.0-34.0); MCHC 32.9 g/dL (28.0-37.0); MCV 85.5 fL (80.0-100.0); MONOCYTES 3.9 %; MPV 6.9 fl. (7.2-11.1); NUCLEATED RBCS 0 /100WBC; PLATELET COUNT* 402 thou/uL (150-400); POLYS 78.1 %; RBC 4.94 mil/uL (4.20-5.00); RDW-CV 15.4 % (10.5-14.5); WBC 8.4 thou/uL (4.0-11.0)
[2020-09-20 17:33] LABS: CALCIUM 9.1 mg/dL (8.5-10.1); POTASSIUM 4.4 mmol/L (3.5-5.1)
[2020-09-20 17:37] LABS: ALBUMIN 4.1 g/dL (3.4-5.0); TOTAL BILIRUBIN 0.5 mg/dL (<0.1-1.0); TOTAL PROTEIN 8.4 g/dL (6.4-8.2)
[2020-09-20] MEDS ORDERED: NORCO 5-325 TA1 EAC2 PO (18:07)
[2020-09-20] MEDS ORDERED: LIDODERM1 EACH TOP (18:07)
[2020-09-20 18:18] VITALS: BP 158/68
--- NOTE | 2020-09-21 13:26 | EKG ---
[place] [address] ELECTROCARDIOGRAM REPORT Name: JAVIER DAN Kwame [facility] [id number] Admission: 09/20/20 Attend Phys: Discharge: 09/20/20 Date of : 74 Date of Service: 09/20/20 1725 Report #: [id number] THIS REPORT FOR: //name// [facility] ED Test Date: 2020-09-20 Test Time: 17:25:44 Pat Name: JAVIER DAN Department: Room: Gender: F Manager Meeting: : 1970 Requested By: Guille Jim Order Number: [id number] MD: Sunny Hernández Measurements Intervals [place] Rate: 67 P: 47 [place]: 165 QRS: 15 QRSD: 97 T: 44 QT: 394 QTc: 416 Interpretive Statements Sinus rhythm Compared to ECG 07/25/2020 20:37:33 Left ventricular hypertrophy no longer present Electronically Signed On 09-21-2020 13:26:04 FUNDRAISING COORDINATOR by Sunny Hernández [email or web address] <ELECTRONICALLY SIGNED> By: Sunny Hernández MD, [facility] 09/21/20 1326 172 24 Sunny Hernández MD, [facility] /EPI
== END 2020-09-20 18:19 | disposition home or self-care (01) ==
LOC: M.ERS 13:48
PROVIDERS: Emergency Medicine Emergency Medical Services; Nurse Practitioner Family
DX: M54.6 Pain in thoracic spine (principal); I10 Essential (primary) hypertension; Z88.6 Allergy status to analgesic agent; Z91.041 Radiographic dye allergy status; Z88.5 Allergy status to narcotic agent; Z91.018 Allergy to other foods; Z90.49 Acquired absence of other specified parts of digestive tract; Z87.442 Personal history of urinary calculi; Z90.89 Acquired absence of other organs

== ENCOUNTER 2020-11-05 13:33 | Emergency (ER) | payer BC ==
[~2020-11-05] VITALS: Ht 165.1 cm; Wt 83.9 kg
[~2020-11-05 13:33] MED LIST changes: +LIDODERM1 EACH TOP
[2020-11-05 14:24] LABS: ABSOLUTE EOSINOPHILS 0.1 thou/uL (0.0-0.7); ABSOLUTE MONOCYTES 0.4 thou/uL (0.0-1.2); ABSOLUTE NEUTROPHILS 4.7 thou/uL (1.6-8.1); BASOPHILS 0.7 %; HEMATOCRIT 42.6 % (37.0-47.0); HEMOGLOBIN 14.2 gm/dL (12.0-15.0); LYMPHOCYTES 27.4 %; MCH 28.4 pg (26.0-34.0); MCHC 33.3 g/dL (28.0-37.0); MCV 85.3 fL (80.0-100.0); MONOCYTES 5.4 %; NUCLEATED RBCS 0 /100WBC; PLATELET COUNT* 360 thou/uL (150-400); POLYS 65.5 %; RDW-CV 14.5 % (10.5-14.5); WBC 7.2 thou/uL (4.0-11.0)
[2020-11-05 14:35] LABS: APTT 28.5 Seconds (25.0-31.3); PROTIME 10.4 Seconds (9.20-11.50)
[2020-11-05 14:45] LABS: CALCIUM 9.1 mg/dL (8.5-10.1); CREATININE 1.1 mg/dL (0.6-1.3); POTASSIUM 3.4 mmol/L (3.5-5.1)
[2020-11-05 14:52] LABS: ALBUMIN 3.9 g/dL (3.4-5.0); TOTAL BILIRUBIN 0.7 mg/dL (<0.1-1.0); TOTAL PROTEIN 7.8 g/dL (6.4-8.2)
[2020-11-05 15:19] VITALS: BP 113/77
--- NOTE | 2020-11-08 15:01 | EKG ---
[place] [address] ELECTROCARDIOGRAM REPORT Name: JUAN ANTONIO DANTRENT Puente Room: [facility]#: [id number] Admission: 11/05/20 Attend Phys: Discharge: 11/05/20 Date of : 74 Date of Service: 11/05/20 1340 Report #: [id number] THIS REPORT FOR: //name// [facility] ED Test Date: 2020-11-05 Test Time: 13:40:18 Pat Name: JAVIER DAN Department: Room: Gender: Print Operator: [place] : 1970 Requested By: Chele Nathan Order Number: [id number] MD: Oswaldo [place] Measurements Intervals [place] Rate: 83 P: 64 [place]: 160 QRS: 22 QRSD: 98 T: 63 QT: 378 QTc: 445 Interpretive Statements Sinus rhythm Probable left atrial enlargement Compared to ECG 09/20/2020 17:25:44 No significant changes Electronically Signed On 11-08-2020 15:01:15 EVENT HOST by Oswaldo [place] [email or web address] <ELECTRONICALLY SIGNED> By: Oswaldo [place] MD, [facility] 11/08/20 1501 1340 1340 Oswaldo [place] MD, FACC /EPI
== END 2020-11-05 15:20 | disposition home or self-care (01) ==
LOC: M.ERS 13:33
PROVIDERS: Family Medicine
DX: I10 Essential (primary) hypertension (principal); F41.9 Anxiety disorder, unspecified; Z88.6 Allergy status to analgesic agent; Z88.5 Allergy status to narcotic agent; Z88.8 Allergy status to other drugs, medicaments and biological substances; Z91.018 Allergy to other foods; Z91.041 Radiographic dye allergy status; Z90.49 Acquired absence of other specified parts of digestive tract; Z87.442 Personal history of urinary calculi; Z90.89 Acquired absence of other organs

== ENCOUNTER 2021-01-06 10:47 | Emergency (ER) | payer BC ==
[~2021-01-06] VITALS: Ht 162.6 cm; Wt 83.9 kg
[2021-01-06 11:05] LABS: URINE BILIRUBIN NEGATIVE (Negative); URINE BLOOD TRACE (Negative); URINE CLARITY CLEAR; URINE COLOR YELLOW; URINE GLUCOSE-RANDOM NEGATIVE (Negative); URINE KETONES NEGATIVE (Negative); URINE LEUKOCYTES-REFLEX NEGATIVE (Negative); URINE NITRITE-REFLEX NEGATIVE (Negative); URINE PROTEIN NEGATIVE (Negative); URINE SPECIFIC GRAVITY >= 1.030 (1.005-1.030); URINE UROBILINOGEN 0.2 E.U./dl (0.2-1.0)
[2021-01-06 11:30] LABS: ABSOLUTE BASOPHILS 0.1 thou/uL (0.0-0.2); ABSOLUTE EOSINOPHILS 0.2 thou/uL (0.0-0.7); ABSOLUTE LYMPHOCYTES 2.4 thou/uL (0.8-5.3); ABSOLUTE MONOCYTES 0.5 thou/uL (0.0-1.2); ABSOLUTE NEUTROPHILS 5.8 thou/uL (1.6-8.1); BASOPHILS 0.6 %; HEMATOCRIT 42.7 % (37.0-47.0); HEMOGLOBIN 13.9 gm/dL (12.0-15.0); MCH 27.8 pg (26.0-34.0); MCHC 32.6 g/dL (28.0-37.0); MCV 85.3 fL (80.0-100.0); MONOCYTES 5.3 %; MPV 7.1 fl. (7.2-11.1); NUCLEATED RBCS 0 /100WBC; POLYS 65.1 %; RBC 5.01 mil/uL (4.20-5.00); RDW-CV 14.6 % (10.5-14.5); WBC 8.9 thou/uL (4.0-11.0)
[2021-01-06 11:44] LABS: CALCIUM 9.6 mg/dL (8.5-10.1); POTASSIUM 3.6 mmol/L (3.5-5.1)
[2021-01-06 11:49] LABS: ALBUMIN 3.8 g/dL (3.4-5.0); TOTAL BILIRUBIN 0.6 mg/dL (<0.1-1.0); TOTAL PROTEIN 7.7 g/dL (6.4-8.2)
[2021-01-06 11:54] LABS: PLATELET COUNT* 318 thou/uL (150-400)
[2021-01-06] MEDS ORDERED: NORCO5 PO (13:46)
[2021-01-06 14:00] VITALS: BP 144/58
== END 2021-01-06 14:00 | disposition home or self-care (01) ==
LOC: M.ERS 10:47
PROVIDERS: Physician Assistant
DX: K42.9 Umbilical hernia without obstruction or gangrene (principal); R11.0 Nausea; R51.9 Headache, unspecified; I10 Essential (primary) hypertension; Z20.822 Contact with and (suspected) exposure to COVID-19; Z87.442 Personal history of urinary calculi; Z90.49 Acquired absence of other specified parts of digestive tract; Z90.89 Acquired absence of other organs; Z79.899 Other long term (current) drug therapy; Z88.8 Allergy status to other drugs, medicaments and biological substances; Z88.5 Allergy status to narcotic agent; Z91.041 Radiographic dye allergy status

== ENCOUNTER 2021-01-29 20:54 | Emergency (ER) | payer BC ==
[~2021-01-29] VITALS: Ht 162.6 cm; Wt 89.8 kg
[~2021-01-29 20:54] MED LIST changes: +NORCO5 PO
[2021-01-29] MEDS ORDERED: TOPROL XL25 MG PO (21:10)
[2021-01-29] MEDS ORDERED: XANAX 0.5 MG0.5 MG PO (21:11)
[2021-01-29] MEDS ORDERED: PROTONIX40 M2 PO (21:11)
[2021-01-29 22:18] LABS: URINE BILIRUBIN NEGATIVE (Negative); URINE BLOOD NEGATIVE (Negative); URINE CLARITY CLEAR; URINE COLOR STRAW; URINE GLUCOSE-RANDOM NEGATIVE (Negative); URINE KETONES NEGATIVE (Negative); URINE LEUKOCYTES-REFLEX NEGATIVE (Negative); URINE NITRITE-REFLEX NEGATIVE (Negative); URINE PROTEIN NEGATIVE (Negative); URINE UROBILINOGEN 0.2 E.U./dl (0.2-1.0)
[2021-01-29 22:20] LABS: ABSOLUTE EOSINOPHILS 0.1 thou/uL (0.0-0.7); ABSOLUTE MONOCYTES 0.5 thou/uL (0.0-1.2); BASOPHILS 0.5 %; EOSINOPHILS 0.7 %; HEMOGLOBIN 14.1 gm/dL (12.0-15.0); LYMPHOCYTES 18.8 %; MCHC 32.7 g/dL (28.0-37.0); MCV 85.5 fL (80.0-100.0); MONOCYTES 4.3 %; MPV 7.3 fl. (7.2-11.1); NUCLEATED RBCS 0 /100WBC; PLATELET COUNT* 425 thou/uL (150-400); POLYS 75.7 %; RBC 5.03 mil/uL (4.20-5.00); WBC 10.6 thou/uL (4.0-11.0)
[2021-01-29 22:25] LABS: CALCIUM 9.6 mg/dL (8.5-10.1); CREATININE 1.1 mg/dL (0.6-1.3); POTASSIUM 3.8 mmol/L (3.5-5.1)
[2021-01-29 22:29] LABS: TOTAL BILIRUBIN 0.4 mg/dL (<0.1-1.0); TOTAL PROTEIN 8.3 g/dL (6.4-8.2)
[2021-01-29] MEDS ORDERED: PHENERGAN 25 MG25 M1 PO (23:48)
[2021-01-29 23:57] VITALS: BP 165/94
== END 2021-01-29 23:57 | disposition home or self-care (01) ==
LOC: M.ERS 20:54
PROVIDERS: Personal Emergency Response Attendant
DX: R11.2 Nausea with vomiting, unspecified (principal); R19.7 Diarrhea, unspecified; I10 Essential (primary) hypertension; Z90.49 Acquired absence of other specified parts of digestive tract; Z87.442 Personal history of urinary calculi; Z98.51 Tubal ligation status; Z90.89 Acquired absence of other organs; Z98.84 Bariatric surgery status; Z79.899 Other long term (current) drug therapy; Z88.8 Allergy status to other drugs, medicaments and biological substances; Z91.018 Allergy to other foods; Z88.5 Allergy status to narcotic agent; Z88.6 Allergy status to analgesic agent; Z91.041 Radiographic dye allergy status

== ENCOUNTER 2021-02-10 03:47 | Emergency (ER) | payer BC ==
[~2021-02-10] VITALS: Ht 160 cm; Wt 86.2 kg
[~2021-02-10 03:47] MED LIST changes: +XANAX 0.5 MG0.5 MG PO
[2021-02-10 04:30] LABS: ABSOLUTE EOSINOPHILS 0.1 thou/uL (0.0-0.7); ABSOLUTE LYMPHOCYTES 2.2 thou/uL (0.8-5.3); ABSOLUTE MONOCYTES 0.5 thou/uL (0.0-1.2); ABSOLUTE NEUTROPHILS 4.4 thou/uL (1.6-8.1); BASOPHILS 0.5 %; EOSINOPHILS 1.7 %; HEMOGLOBIN 13.1 gm/dL (12.0-15.0); LYMPHOCYTES 30.7 %; MCH 28.4 pg (26.0-34.0); MCHC 33.6 g/dL (28.0-37.0); MCV 84.5 fL (80.0-100.0); MONOCYTES 6.7 %; MPV 6.8 fl. (7.2-11.1); NUCLEATED RBCS 0 /100WBC; PLATELET COUNT* 353 thou/uL (150-400); POLYS 60.4 %; RBC 4.61 mil/uL (4.20-5.00); RDW-CV 14.5 % (10.5-14.5); WBC 7.3 thou/uL (4.0-11.0)
[2021-02-10 04:48] LABS: CALCIUM 9.8 mg/dL (8.5-10.1); CREATININE 0.9 mg/dL (0.6-1.3); POTASSIUM 3.7 mmol/L (3.5-5.1); PROTIME 10.4 Seconds (9.20-11.50)
[2021-02-10 04:52] LABS: ALBUMIN 3.7 g/dL (3.4-5.0); MAGNESIUM 2.2 mg/dL (1.8-2.4); TOTAL BILIRUBIN 0.5 mg/dL (<0.1-1.0); TOTAL PROTEIN 7.7 g/dL (6.4-8.2)
[2021-02-10] MEDS ORDERED: CARAFATE 1 GM TA1 GM PO (06:27)
[2021-02-10] MEDS ORDERED: ALPRAZOLAM 0.50.5 M1 PO (06:40)
[2021-02-10 07:43] VITALS: BP 129/86
--- NOTE | 2021-02-10 10:53 | EKG ---
[place] [address] ELECTROCARDIOGRAM REPORT Name: JUAN ANTONIO DANTRENT Puente Room: [facility]#: [id number] Admission: 02/10/21 Attend Phys: Discharge: 02/10/21 Date of : 74 Date of Service: 02/10/21 0352 Report #: [id number] THIS REPORT FOR: //name// [facility] ED Test Date: 2021-02-10 Test Time: 03:52:47 Pat Name: JAVIER DAN Department: Room: Gender: F Hospital Coordinator: : 1970 Requested By: Marge Melendez Order Number: [id number] MD: Christiano Bentley Measurements Intervals [place] Rate: 82 P: 47 SD: 174 QRS: 3 QRSD: 99 T: 36 QT: 379 QTc: 443 Interpretive Statements Sinus rhythm Baseline wander in lead(s) V4 Compared to ECG 11/05/2020 13:40:18 No significant changes Electronically Signed On 02-10-2021 10:53:02 CDT by Christiano Bentley [email or web address] <ELECTRONICALLY SIGNED> By: Christiano Bentley MD, [facility] 02/10/21 1053 0352 0352 Christiano Bentley MD, [facility] /EPI
== END 2021-02-10 07:43 | disposition home or self-care (01) ==
LOC: M.ERS 03:47
PROVIDERS: Emergency Medicine
DX: F41.9 Anxiety disorder, unspecified (principal); R12 Heartburn; I10 Essential (primary) hypertension; Z90.49 Acquired absence of other specified parts of digestive tract; Z87.442 Personal history of urinary calculi; Z90.89 Acquired absence of other organs; Z98.84 Bariatric surgery status; Z79.899 Other long term (current) drug therapy; Z88.8 Allergy status to other drugs, medicaments and biological substances; Z91.018 Allergy to other foods; Z88.5 Allergy status to narcotic agent; Z88.6 Allergy status to analgesic agent; Z91.041 Radiographic dye allergy status

== ENCOUNTER 2021-03-11 19:23 | Emergency (ER) | payer BC ==
[~2021-03-11] VITALS: Ht 160 cm; Wt 86.2 kg
[~2021-03-11 19:23] MED LIST changes: +ALPRAZOLAM 0.50.5 M1 PO; +CARAFATE 1 GM TA1 GM PO
[2021-03-11 20:23] LABS: ABSOLUTE BASOPHILS 0.1 thou/uL (0.0-0.2); ABSOLUTE EOSINOPHILS 0.1 thou/uL (0.0-0.7); ABSOLUTE LYMPHOCYTES 2.7 thou/uL (0.8-5.3); ABSOLUTE MONOCYTES 0.5 thou/uL (0.0-1.2); ABSOLUTE NEUTROPHILS 5.8 thou/uL (1.6-8.1); BASOPHILS 0.6 %; EOSINOPHILS 0.6 %; HEMATOCRIT 41.3 % (37.0-47.0); HEMOGLOBIN 13.4 gm/dL (12.0-15.0); LYMPHOCYTES 29.3 %; MCH 27.7 pg (26.0-34.0); MCHC 32.4 g/dL (28.0-37.0); MCV 85.4 fL (80.0-100.0); MONOCYTES 5.1 %; MPV 6.9 fl. (7.2-11.1); NUCLEATED RBCS 0 /100WBC; PLATELET COUNT* 396 thou/uL (150-400); POLYS 64.4 %; RBC 4.84 mil/uL (4.20-5.00); RDW-CV 14.5 % (10.5-14.5); WBC 9.1 thou/uL (4.0-11.0)
[2021-03-11 20:28] LABS: CALCIUM 9.5 mg/dL (8.5-10.1); POTASSIUM 3.8 mmol/L (3.5-5.1)
[2021-03-11 20:30] LABS: PROTIME 10.5 Seconds (9.20-11.50)
[2021-03-11 20:32] LABS: TOTAL BILIRUBIN 0.6 mg/dL (<0.1-1.0); TOTAL PROTEIN 8.2 g/dL (6.4-8.2)
[2021-03-11] MEDS ORDERED: ACETAMINOPHEN-1 EAC2 PO (22:14)
[2021-03-11] MEDS ORDERED: AMOXICILLIN875 MG PO (22:14)
[2021-03-11] MEDS ORDERED: DIAZEPAM 5 MG5 MG PO (22:14)
[2021-03-11 22:50] VITALS: BP 139/78
--- NOTE | 2021-03-12 12:31 | EKG ---
[place] [address] ELECTROCARDIOGRAM REPORT Name: SHOAIBRobJAVIER R Room: [facility]#: [id number] Admission: 03/11/21 Attend Phys: Discharge: 03/11/21 Date of : 74 Date of Service: 03/11/211929 Report #: [id number] THIS REPORT FOR: //name// [facility] ED Test Date: 2021-03-11 Test Time: 19:30:35 Pat Name: JAVIER DAN Department: Room: Gender: F Residential Recycle Driver: [place] : 1970 Requested By: Cherelle Moncada Order Number: [id number] MD: Steve Dorantes Measurements Intervals [place] Rate: 84 P: 58 [place]: 172 QRS: 9 QRSD: 100 T: 41 QT: 396 QTc: 469 Interpretive Statements Sinus rhythm Probable left atrial enlargement Baseline wander in lead(s) I,II,aVR,aVF,V1,V2,V3,V4,V5,V6 Compared to ECG 02/10/2021 03:52:47 No significant changes Electronically Signed On 03-12-2021 12:31:25 CDT by Steve Dorantes [email or web address] <ELECTRONICALLY SIGNED> By: Aida Dorantes MD, FACC 03/12/21 1231 29 29 Aida Dorantes MD, [facility] /EPI
== END 2021-03-11 22:50 | disposition home or self-care (01) ==
LOC: M.ERS 19:23
PROVIDERS: Personal Emergency Response Attendant
DX: I16.0 Hypertensive urgency (principal); F41.9 Anxiety disorder, unspecified; M79.18 Myalgia, other site; I10 Essential (primary) hypertension; Z88.6 Allergy status to analgesic agent; Z88.5 Allergy status to narcotic agent; Z91.041 Radiographic dye allergy status; Z88.8 Allergy status to other drugs, medicaments and biological substances; Z91.018 Allergy to other foods; Z90.49 Acquired absence of other specified parts of digestive tract; Z87.442 Personal history of urinary calculi; Z90.89 Acquired absence of other organs

== ENCOUNTER 2021-03-17 21:58 | Emergency (ER) | payer BC ==
[~2021-03-17] VITALS: Ht 162.6 cm; Wt 86.2 kg
[~2021-03-17 21:58] MED LIST changes: +ACETAMINOPHEN-1 EAC2 PO; +DIAZEPAM 5 MG5 MG PO
[2021-03-17] MEDS ORDERED: DIFLUCAN150 MG PO (22:34)
[2021-03-17] MEDS ORDERED: NYSTATIN100000 UNI PO (22:34)
[2021-03-17 23:10] VITALS: BP 165/98
== END 2021-03-17 23:11 | disposition home or self-care (01) ==
LOC: M.ERS 21:58
DX: B37.0 Candidal stomatitis (principal); B37.81 Candidal esophagitis; I10 Essential (primary) hypertension; Z88.6 Allergy status to analgesic agent; Z88.8 Allergy status to other drugs, medicaments and biological substances; Z79.899 Other long term (current) drug therapy; Z87.442 Personal history of urinary calculi; Z90.89 Acquired absence of other organs

== ENCOUNTER 2021-04-11 09:29 | Emergency (ER) | payer BC ==
[~2021-04-11] VITALS: Ht 162.6 cm; Wt 86.2 kg
[~2021-04-11 09:29] MED LIST changes: +DIFLUCAN150 MG PO; +NYSTATIN100000 UNI PO
[2021-04-11] MEDS ORDERED: TOPROL XL25 MG PO (10:11)
[2021-04-11] MEDS ORDERED: REGLAN 10 MG TA10 MG PO (10:12)
[2021-04-11] MEDS ORDERED: HYDROCODON-ACE1 EAC7 PO (10:13)
[2021-04-11] MEDS ORDERED: TYLENOL325 M1 PO (10:14)
[2021-04-11] MEDS ORDERED: IBUPROFEN200 M1 PO (10:14)
[2021-04-11 10:44] LABS: ABSOLUTE BASOPHILS 0.1 thou/uL (0.0-0.2); ABSOLUTE EOSINOPHILS 0.2 thou/uL (0.0-0.7); ABSOLUTE LYMPHOCYTES 2.5 thou/uL (0.8-5.3); ABSOLUTE MONOCYTES 0.5 thou/uL (0.0-1.2); ABSOLUTE NEUTROPHILS 4.4 thou/uL (1.6-8.1); BASOPHILS 0.7 %; EOSINOPHILS 2.4 %; HEMATOCRIT 43.7 % (37.0-47.0); HEMOGLOBIN 14.4 gm/dL (12.0-15.0); LYMPHOCYTES 32.4 %; MCH 28.1 pg (26.0-34.0); MCHC 32.9 g/dL (28.0-37.0); MCV 85.5 fL (80.0-100.0); MONOCYTES 6.7 %; NUCLEATED RBCS 0 /100WBC; PLATELET COUNT* 418 thou/uL (150-400); POLYS 57.8 %; RBC 5.11 mil/uL (4.20-5.00); RDW-CV 14.2 % (10.5-14.5); WBC 7.6 thou/uL (4.0-11.0)
[2021-04-11 10:53] LABS: ANION GAP 10 mmol/L (7-16); BUN 18 mg/dL (7-18); CALCIUM 9.5 mg/dL (8.5-10.1); CHLORIDE 103 mmol/L (98-107); CO2 28 mmol/L (21-32); GLUCOSE 103 mg/dL (70-99); POTASSIUM 3.7 mmol/L (3.5-5.1); SODIUM 141 mmol/L (136-145)
[2021-04-11 10:59] LABS: ALBUMIN 4.1 g/dL (3.4-5.0); ALKALINE PHOSPHATASE 97 U/L (46-116); MAGNESIUM 2.1 mg/dL (1.8-2.4); SGOT 17 U/L (15-37); SGPT 31 U/L (30-65); TOTAL BILIRUBIN < 0.1 mg/dL (<0.1-1.0); TOTAL PROTEIN 8.2 g/dL (6.4-8.2)
[2021-04-11] MEDS ORDERED: NORCO5 PO ×2 (13:16→13:21)
[2021-04-11 13:33] VITALS: BP 154/94
== END 2021-04-11 13:35 | disposition home or self-care (01) ==
LOC: M.ERS 09:29
PROVIDERS: Nurse Practitioner Family
DX: M79.604 Pain in right leg (principal); I10 Essential (primary) hypertension; Z88.6 Allergy status to analgesic agent; Z88.5 Allergy status to narcotic agent; Z88.8 Allergy status to other drugs, medicaments and biological substances; Z79.899 Other long term (current) drug therapy; Z90.49 Acquired absence of other specified parts of digestive tract; Z87.442 Personal history of urinary calculi